=== PATIENT | male | born 1965 | race Caucasian/White ===

== ENCOUNTER → 2016-06-22 | Outpatient (CLI) | payer OTHER ==
[~2016-06-22] MED LIST: CO Q-1030 M1 PO; ED FLEXERI6 TAB/BOTT PO; ESSENTIAL DAIL1 EACH PO; FISH OIL1000 MG PO; METHOCARBAMOL750 MG PO; NEURONTIN300 MG/CAP PO; TRAMADOL 50 MG TAB PO; ZESTRIL5 M1 PO
== END ==
LOC: CARDREHAB 07:41
DX: I10 Essential (primary) hypertension (principal); E78.5 Hyperlipidemia, unspecified; Z82.49 Family history of ischemic heart disease and other diseases of the circulatory system; F17.200 Nicotine dependence, unspecified, uncomplicated
CPT/HCPCS: A9500

== ENCOUNTER 2017-03-20 10:00 | Outpatient (RCR) | payer OTHER ==
[2016-05-14 11:51] VITALS: BP 134/95
== END 2017-03-20 10:30 | disposition home or self-care (01) ==
LOC: OT 10:00
DX: S67.190D Crushing injury of right index finger, subsequent encounter (principal); W23.0XXD Caught, crushed, jammed, or pinched between moving objects, subsequent encounter

== ENCOUNTER → 2017-04-01 | Day surgery (SDC) | payer OTHER ==
[2016-05-14 11:51] VITALS: BP 134/95
== END ==
LOC: MSO 07:14
DX: Z12.11 Encounter for screening for malignant neoplasm of colon (principal); I10 Essential (primary) hypertension; Z87.891 Personal history of nicotine dependence
CPT/HCPCS: J7030

== ENCOUNTER → 2018-04-08 | Outpatient (CLI) | payer OTHER ==
[2016-05-14 11:51] VITALS: BP 134/95
== END ==
LOC: PT 15:27 → EDSTATUS 15:30
DX: Z01.818 Encounter for other preprocedural examination (principal)

== ENCOUNTER 2018-04-24 13:30 | Outpatient (RCR) | payer OTHER ==
[2016-05-14 11:51] VITALS: BP 134/95
== END 2018-04-24 16:01 | disposition home or self-care (01) ==
LOC: PT 13:30
DX: S83.242D Other tear of medial meniscus, current injury, left knee, subsequent encounter (principal)

== ENCOUNTER → 2019-08-12 | Outpatient (CLI) | payer OTHER ==
[2016-05-14 11:51] VITALS: BP 134/95
== END ==
LOC: RAD 15:03
DX: M19.011 Primary osteoarthritis, right shoulder (principal)

== ENCOUNTER 2019-08-27 16:00 | Outpatient (RCR) | payer OTHER ==
[2016-05-14 11:51] VITALS: BP 134/95
== END 2019-08-27 16:30 | disposition still patient (30) ==
LOC: PT 16:00
DX: M25.511 Pain in right shoulder (principal)

== ENCOUNTER → 2019-09-15 | Outpatient (CLI) | payer OTHER ==
[2016-05-14 11:51] VITALS: BP 134/95
== END ==
LOC: RAD 06:55
DX: S43.431A Superior glenoid labrum lesion of right shoulder, initial encounter (principal); M75.101 Unspecified rotator cuff tear or rupture of right shoulder, not specified as traumatic

== ENCOUNTER 2019-12-15 16:00 | Outpatient (RCR) | payer OTHER ==
[2016-05-14 11:51] VITALS: BP 134/95
== END 2020-01-10 | disposition still patient (30) ==
LOC: PT
DX: M67.813 Other specified disorders of tendon, right shoulder (principal)

== ENCOUNTER → 2019-12-23 | Outpatient (CLI) | payer OTHER ==
[2016-05-14 11:51] VITALS: BP 134/95
[2019-12-23 16:11] LABS: ALBUMIN 4.2 g/dL (3.5-5.0); POTASSIUM 3.8 mmol/L (3.5-5.1)
[2019-12-23 16:12] LABS: CALCIUM 9.3 mg/dL (8.3-10.5)
[2019-12-23 16:14] LABS: TOTAL PROTEIN 7.6 g/dL (6.4-8.3)
[2019-12-23 16:16] LABS: TOTAL BILIRUBIN 0.5 mg/dL (0.2-1.2)
== END ==
LOC: LAB 15:42
PROVIDERS: Family Medicine
DX: Z00.00 Encounter for general adult medical examination without abnormal findings (principal); I10 Essential (primary) hypertension; E78.5 Hyperlipidemia, unspecified; R73.9 Hyperglycemia, unspecified; Z72.0 Tobacco use; Z80.42 Family history of malignant neoplasm of prostate

== ENCOUNTER 2020-04-21 00:59 | Emergency (ER) | payer OTHER ==
[2020-04-21] MEDS ORDERED: LOSARTAN POTASS1 TA2 PO (01:09)
[2020-04-21] MEDS ORDERED: NIACIN ER1000 MG PO (01:09)
[2020-04-21] MEDS ORDERED: SIMVASTATIN20 M1 PO (01:09)
[2020-04-21] MEDS ORDERED: ADULT ASPIRIN R81 MG PO (01:09)
[2020-04-21] MEDS ORDERED: FISH OIL1 IU PO (01:10)
[2020-04-21 02:04] LABS: HEMATOCRIT 44.2 % (42.0-52.0); HEMOGLOBIN 14.8 g/dL (13.5-18.0); MEAN CELL VOLUME 91 fl (78-100); MEAN CORPUSCULAR HEMOGLOBIN 31 pg (27-31); MEAN CORPUSCULAR HGB CONC 34 g/dL (33-37); MEAN PLATELET VOLUME 11.5 fl (7.4-10.4); PLATELET COUNT 134 K/mm3 (130-400); RED BLOOD COUNT 4.86 M/mm3 (4.20-5.60); RED CELL DISTRIBUTION WIDTH 12.7 % (11.5-14.5); WHITE BLOOD COUNT 4.1 K/mm3 (4.8-10.8)
[2020-04-21 02:12] LABS: ALBUMIN 3.9 g/dL (3.5-5.0)
[2020-04-21 02:13] LABS: POTASSIUM 3.7 mmol/L (3.5-5.1)
[2020-04-21 02:14] LABS: CALCIUM 8.5 mg/dL (8.3-10.5)
[2020-04-21 02:15] LABS: TOTAL PROTEIN 7.3 g/dL (6.4-8.3)
[2020-04-21 02:17] LABS: TOTAL BILIRUBIN 0.3 mg/dL (0.2-1.2)
[2020-04-21 02:32] LABS: BAND 5 % (0-10); LYMPHOCYTE 12 % (20-51); MONOCYTE 16 % (3-10)
[2020-04-21 02:34] LABS: NEUTROPHILS 59 % (42-75)
[2020-04-21] MEDS ORDERED: TESSALON PERLE100 M1 PO (02:59)
[2020-04-21] MEDS ORDERED: ZITHROMAX 250M250 MG PO (02:59)
[2020-04-21] MEDS ORDERED: ALBUTEROL2.5 MG/3 M IH (02:59)
[2020-04-21 03:08] VITALS: BP 142/90
== END 2020-04-21 03:08 | disposition home or self-care (01) ==
LOC: ED 00:59
PROVIDERS: Family Medicine
DX: U07.1 COVID-19 (principal); I10 Essential (primary) hypertension; E78.5 Hyperlipidemia, unspecified; F17.290 Nicotine dependence, other tobacco product, uncomplicated; Z88.5 Allergy status to narcotic agent; Z88.6 Allergy status to analgesic agent; Z79.82 Long term (current) use of aspirin

== ENCOUNTER → 2020-04-22 | Outpatient (CLI) | payer OTHER ==
[2020-04-21 03:08] VITALS: BP 142/90
[~2020-04-22] MED LIST changes: +ADULT ASPIRIN R81 MG PO; +ALBUTEROL2.5 MG/3 M IH; +FISH OIL1 IU PO; +LOSARTAN POTASS1 TA2 PO; +NIACIN ER1000 MG PO; +SIMVASTATIN20 M1 PO; +TESSALON PERLE100 M1 PO; +ZITHROMAX 250M250 MG PO
== END ==
LOC: RAD 08:30
DX: U07.1 COVID-19 (principal); J18.1 Lobar pneumonia, unspecified organism

== ENCOUNTER → 2020-11-28 | Outpatient (CLI) | payer OTHER ==
[2020-11-28 08:18] LABS: POTASSIUM 3.7 mmol/L (3.5-5.1)
[2020-11-28 08:19] LABS: CALCIUM 8.7 mg/dL (8.3-10.5)
[2020-11-28 08:21] LABS: TOTAL PROTEIN 7.1 g/dL (6.4-8.3)
[2020-11-28 08:23] LABS: TOTAL BILIRUBIN 0.6 mg/dL (0.2-1.2)
== END ==
LOC: LAB 07:22
PROVIDERS: Family Medicine
DX: Z00.00 Encounter for general adult medical examination without abnormal findings (principal); Z12.5 Encounter for screening for malignant neoplasm of prostate

== ENCOUNTER → 2020-12-08 | Outpatient (CLI) | payer OTHER | LOC: LAB 07:17 | DX: R73.9 Hyperglycemia, unspecified (principal) ==

== ENCOUNTER → 2021-02-24 | Outpatient (CLI) | payer OTHER ==
[2021-02-24 08:03] LABS: ALBUMIN 4.1 g/dL (3.5-5.0)
[2021-02-24 08:04] LABS: CALCIUM 9.5 mg/dL (8.3-10.5)
[2021-02-24 08:06] LABS: TOTAL PROTEIN 7.3 g/dL (6.4-8.3)
[2021-02-24 08:07] LABS: TOTAL BILIRUBIN 0.6 mg/dL (0.2-1.2)
== END ==
LOC: LAB 07:20
PROVIDERS: Family Medicine
DX: Z00.00 Encounter for general adult medical examination without abnormal findings (principal)

== ENCOUNTER → 2021-08-25 | Outpatient (CLI) | payer OTHER | LOC: LAB 07:32 | DX: E78.5 Hyperlipidemia, unspecified (principal); R73.01 Impaired fasting glucose ==

== ENCOUNTER 2022-04-19 08:52 | Outpatient (RCR) | payer OTHER | END 2022-05-09 | disposition still patient (30) | LOC: PT | DX: Z98.1 Arthrodesis status (principal) ==

== ENCOUNTER 2022-08-08 07:48 | Outpatient (RCR) | payer OTHER | END 2022-09-07 | disposition home or self-care (01) | LOC: PT | DX: M54.16 Radiculopathy, lumbar region (principal) ==

== ENCOUNTER → 2023-06-27 | Outpatient (CLI) | payer BC | LOC: LAB 16:12 | DX: Z00.00 Encounter for general adult medical examination without abnormal findings (principal); Z12.5 Encounter for screening for malignant neoplasm of prostate ==

== ENCOUNTER → 2023-11-20 | Outpatient (CLI) | payer BC ==
[2023-11-20 15:55] LABS: CALCIUM 9.6 mg/dL (8.3-10.5)
== END ==
LOC: LAB 15:36
PROVIDERS: Family Medicine
DX: E11.9 Type 2 diabetes mellitus without complications (principal)

== ENCOUNTER → 2024-05-21 | Outpatient (CLI) | payer BC ==
[2024-05-21 15:13] LABS: CALCIUM 9.8 mg/dL (8.3-10.5)
[2024-05-21 23:05] LABS: CREATININE OTHER SOURCE 39 mg/dL (47-110)
== END ==
LOC: LAB 14:52
PROVIDERS: Family Medicine
DX: I10 Essential (primary) hypertension (principal); E11.9 Type 2 diabetes mellitus without complications; E78.2 Mixed hyperlipidemia